=== PATIENT | male | born 1950 | race African-American/Black ===

== ENCOUNTER 2016-10-03 11:29 | Emergency (ER) | payer SELFPAY ==
[2016-10-03 11:34] VITALS: BMI 23.1
[2016-10-03] MEDS ORDERED: FOLIC ACID INJECTION - 1 MG, THIAMINE HCL 100 MG, MULTIVIT INJECTION ADULT 10 ML in SOD... IVPB ONE (12:40)
--- NOTE | 2016-10-03 12:49 | PDOC ---
History of Present Illness - General History Source: Patient, Spouse - History of Present Illness Timing/Duration: other Associated Symptoms: reports: malaise, shortness of breath, weakness. denies: chest pain, cough, diaphoresis, fever/chills, headaches <Haroon Daniel Last Filed: 10/03/16 15:03> <Tamela Metz - Last Filed: 10/08/16 17:29> - General Chief Complaint: Pain Stated Complaint: ABD PAIN/FATIGUE Time Seen by Provider: 10/03/16 12:05 Past History - Past Medical History Anemia: No Asthma: No Cancer: No Cardiac Disorders: No CVA: No COPD: No CHF: No Dementia: No Diabetes: No GI Disorders: No Disorders: No HTN: No Hypercholesterolemia: Yes Liver Disease: No Suicide Attempt (Hx): No Seizures: Yes Thyroid Disease: No - Surgical History Abdominal Surgery: No Appendectomy: No Cardiac Surgery: No Cholecystectomy: No Lung Surgery: Yes (TUBE IN LUNG TO DRAIN FLD,) Orthopedic Surgery: No - Psycho/Social/Smoking Cessation Hx Anxiety: No Suicidal Ideation: No Smoking Status: Yes Smoking History: Current every day smoker Have you smoked in the past 12 months: Yes Number of Cigarettes Smoked Daily: 10 Information on smoking cessation initiated: Yes 'Breaking Loose' booklet given: 10/03/16 Hx Alcohol Use: Yes (SOCIAL) Drug/Substance Use Hx: No Substance Use Type: None Hx Substance Use Treatment: Yes <Savannah Daniel Last Filed: 10/03/16 15:03> <Tamela Metz - Last Filed: 10/08/16 17:29> - Past Medical History Allergies/Adverse Reactions: Allergies Allergy/AdvReac Type Severity Reaction Status Date / Time No Known Allergies Allergy Verified 10/03/16 11:33 Home Medications: Ambulatory Orders NK [No Known Home Medication] 10/03/16 Review of Systems - Review of Systems Constitutional: Yes: Weakness, Unintentional Wgt. Loss. No: Chills, Fever Respiratory: Yes: Shortness of Breath. No: Cough, Hemoptysis Cardiac (ROS): No: Chest Pain ABD/GI: No: Constipated, Diarrhea, Nausea, Vomiting : No: Dysuria, Hematuria Neurological: No: Headache, Dizziness <Jose E Daniel - Last Filed: 10/03/16 15:03> *Physical Exam - Vital Signs Last Vital Signs Temp Pulse Resp BP Pulse Ox 98.0 F 95 H 20 132/78 96 10/03/16 11:31 10/03/16 11:31 10/03/16 11:31 10/03/16 11:31 10/03/16 11:31 - Physical Exam General Appearance: Yes: Appropriately Dressed. No: Apparent Distress HEENT: positive: Normal Voice Neck: positive: Supple Respiratory/Chest: positive: Lungs Clear, Normal Breath Sounds. negative: Respiratory Distress Cardiovascular: positive: Regular Rate, S1, S2 Gastrointestinal/Abdominal: positive: Normal Bowel Sounds, Soft. negative: Tender Musculoskeletal: negative: CVA Tenderness Extremity: positive: Normal Inspection Integumentary: positive: Dry, Warm Neurologic: positive: Fully Oriented, Alert, Normal Mood/Affect <Jose E Daniel Last Filed: 10/03/16 15:03> - Vital Signs Last Vital Signs Temp Pulse Resp BP Pulse Ox 98.1 F 80 22 160/97 96 10/03/16 13:33 10/03/16 13:33 10/03/16 13:33 10/03/16 13:33 10/03/16 13:33 <Tamela Metz - Last Filed: 10/08/16 17:29> Heart Score/ECG Review - ECG Intrepretation Comment:: 10/03/16 13:39 NSR w/ no ST/T wave changes <Jose E Daniel Last Filed: 10/03/16 15:03> ED Treatment Course - LABORATORY CBC & Chemistry Diagram: 10/03/16 12:50 10/03/16 12:50 - RADIOLOGY Radiology Studies Ordered: Category Date Time Status CHEST X-RAY PORTABLE* [RAD] Stat Radiology 10/03/16 12:06 Completed CHEST X-RAY PORTABLE* [RAD] Stat Radiology 10/03/16 12:40 Ordered <Jose E Daniel Last Filed: 10/03/16 15:03> - LABORATORY CBC & Chemistry Diagram: 10/03/16 12:50 10/03/16 12:50 - ADDITIONAL ORDERS Additional order review: 10/03/16 10/03/16 14:49 12:50 RBC 5.07 D MCV 86.2 MCHC 34.2 RDW 14.3 MPV 8.1 Neutrophils % 84.8 H Lymphocytes % 10.1 D Monocytes % 3.8 Eosinophils % 0.1 D Basophils % 1.2 D POC Glucometer [id number] - Medications Given in the ED: ED Medications Discontinued Medications Generic Name Dose Route Start Last Admin Trade Name Mervin PRN Reason Stop Dose Admin Dextrose 50 ml 10/03/16 13:37 10/03/16 14:22 D50w (Vial) - IVPUSH 10/03/16 13:38 Not Given NOW ONE Folic Acid 1 mg/ Thiamine HCl 1,000 mls @ 125 mls/hr 10/03/16 12:40 10/03/16 13 :12 100 mg/ Multivitamins/Minerals IVPB 10/03/16 20:39 125 mls/hr 10 ml/ Sodium Chloride ONCE ONE Administration <Tamela Metz - Last Filed: 10/08/16 17:29> Medical Decision Making - Medical Decision Making 10/03/16 12:41 65-year-old male, > [id number] history, s/p lung resection, but states it was not secondary to malignancy as per patient, ETOH abuse, hernia repair, SBO , presents with profound weakness that started 2 days ago, but worsened today. Patient states this a.m. when he awoke he felt that he had no energy. Also complaining of possible short of breath of breath this am. No chest pain, diaphoresis, nausea, vomiting, cough, fever or chills. States he did have some vague abd pain earlier today that has since resolved. No change in bowel movements or dysuria. currently at bedside and states patient has lost "a lot of weight", but unable to specify how many pounds and over what time period. also reports that patient drinks daily and often does not eat See exam Weakness R/o malignancy vs metabolic vs infectious, less likely neuro Stable and alert in ED w/ unremarkable exam -IVF -banana bag given ETOH abuse -ekg -cxr -labs -anticipate admission 10/03/16 13:25 10/03/16 13:39 Hypoglycemia to 56, labs otherwise unremarkable. Amp D50 in progress and will feed and reassess 10/03/16 13:42 10/03/16 13:57 Pt currently eating and well bigg, will hold off on D50 and reassess 10/03/16 13:58 10/03/16 15:05 Repeat fingerstick in the 180s as per ED nurse. On reassessment, patient reports feeling a lot better and states he does not feel weak at this time. I had a lengthy conversation with patient, explaining to him the importance of a nutritious diet to provide energy, etc. Also discussed excessive ETOH intake and recommend cessation and ? detox/rehab. Patient stable for discharge and instructed to follow up with PMD this week. Reasons to return discussed with patient 10/03/16 15:11 <Jose E Daniel - Last Filed: 10/03/16 15:03> - Medical Decision Making 10/08/16 17:28 Pt seen and evaluated with MANAGER IT SECURITY/PA. Agree with above. <Tamela Metz - Last Filed: 10/08/16 17:29> *DC/Admit/Observation/Transfer <Jose E Daniel - Last Filed: 10/03/16 15:03> <Tamela Metz - Last Filed: 10/08/16 17:29> Diagnosis at time of Disposition: Weakness, Hypoglycemia - Discharge Dispostion Disposition: HOME Condition at time of disposition: Improved - Patient Instructions Printed Discharge Instructions: Health and Nutrition Information: Fact From Fiction, Alcohol Use Disorder, Hypoglycemia Additional Instructions: It is important to maintain a nutritious diet in order to provide energy. Strongly consider alcohol cessation as this can lead to significant health issues. Return to ER for worsening of symptoms
[2016-10-03 13:03] LABS: BASOPHIL 1.2 % (0-2.0); EOSINOPHIL 0.1 % (0-4.5); MCH 29.4 pg (25.7-33.7); MCHC 34.2 g/dl (32.0-35.9); MEAN CELL VOLUME 86.2 fl (80-96); MEAN PLT VOLUME 8.1 fl (7.5-11.1); NEUTROPHILS 84.8 % (42.8-82.8); PLATELET COUNT 248 K/MM3 (134-434); RDW 14.3 % (11.9-15.9)
[2016-10-03 13:31] LABS: ALBUMIN 4.3 g/dl (3.4-5.0); ANION GAP 15 (8-16); CALCIUM 9.3 mg/dL (8.5-10.1); CO2 22 mmol/L (21-32); CREATININE 0.9 mg/dL (0.7-1.3); GLUCOSE,RANDOM 56 mg/dL (74-106); SGOT/AST 63 U/L (15-37); SGPT/ALT 45 U/L (12-78); TOT PROT 8.1 g/dl (6.4-8.2)
[2016-10-03 13:34] VITALS: BP 160/97; PULSE 80; TEMP 98.1
[2016-10-03 13:35] LABS: ALK PHOS 102 U/L (45-117); TROPONIN I < 0.02 ng/ml (0.00-0.05)
[2016-10-03] MEDS ORDERED: DEXTROSE 50%-WATER - 25 GM/50 ML VIAL IVPUSH ONE (13:37)
[2016-10-03 13:50] LABS: URINE APPEARANCE CLEAR; URINE BILIRUBIN NEGATIVE (NEGATIVE); URINE BLOOD 2+ (NEGATIVE); URINE COLOR YELLOW; URINE GLUCOSE (UA) NEGATIVE (NEGATIVE); URINE KETONE TRACE (NEGATIVE); URINE LEUK ESTERASE NEGATIVE (NEGATIVE); URINE NITRITE NEGATIVE (NEGATIVE); URINE PROTEIN 2+ (NEGATIVE); URINE UROBILINOGEN NEGATIVE E.U./dl (0.2-1.0)
[2016-10-03 13:52] LABS: GRANULAR CASTS 4 /lpf; URINE HYALINE CAST 1 /lpf; URINE WBC 1 /hpf (3-5)
--- NOTE | 2016-10-04 14:21 | EKG ---
Test Reason : Blood Pressure : / mmHG Vent. Rate : 080 BPM Atrial Rate : 080 BPM P-R Int : 156 ms QRS Dur : 082 ms QT Int : 404 ms P-R-T Axes : 071 056 071 degrees QTc Int : 465 ms NORMAL SINUS RHYTHM POSSIBLE LEFT ATRIAL ENLARGEMENT SEPTAL INFARCT , AGE UNDETERMINED ABNORMAL ECG WHEN COMPARED WITH ECG OF 19-NOV-2011 10:58, NO SIGNIFICANT CHANGE WAS FOUND Confirmed by WILL HALE MD ([id number]) on 10/04/2016 2:21:03 PM Referred By: Confirmed By:WILL HALE MD
== END 2016-10-03 15:33 | disposition home or self-care (01) ==
LOC: JER 11:29
PROC: 3E033GC Introduction of Other Therapeutic Substance into Peripheral Vein, Percutaneous Approach (ICD-10-PCS; principal; 2016-10-03)
DX: E16.2 Hypoglycemia, unspecified (principal); F10.10 Alcohol abuse, uncomplicated; E78.00 Pure hypercholesterolemia, unspecified; G40.909 Epilepsy, unspecified, not intractable, without status epilepticus
CPT/HCPCS: 36415; 71010-TC; 80053; 81003; 81015; 82550; 82553; 83690; 84484; 85025; 93005; 93010; 99282-25

== ENCOUNTER 2018-01-21 12:14 | Inpatient (IN) | payer MEDICARE, OTHER ==
[2018-01-21] MEDS ORDERED: FAMOTIDINE 20 MG/50 ML IVPB 20 MG/50 ML MG IVPB ONE ×2 (12:46→13:12)
[2018-01-21] MEDS ORDERED: ACETAMINOPHEN 1000 MG/100 ML VIAL (NON FORMULARY) IVPB ONE (12:46)
--- NOTE | 2018-01-21 13:02 | PDOC ---
History of Present Illness <SolitarioLaney dwyer - Last Filed: 01/21/18 15:10> - General History Source: Patient Exam Limitations: No Limitations <Geronimo Nash - Last Filed: 01/21/18 16:51> <Rosalinda Parham Dioneteresita - Last Filed: 01/21/18 17:43> - General Chief Complaint: Chest Pain Stated Complaint: CHEST PAIN Time Seen by Provider: 01/21/18 12:29 - History of Present Illness Initial Comments: 67 yo M w a hx of HCL is here with 2 weeks of sharp chest pain with radiation down his L arm. He reports the chest pain is also associated with diaphoresis. It has also been associated with occasional nausea but no emesis. The chest pain is also brought on by exertion, and relieved by rest. He also reports some leg tingling possibly consistent with PVD. - Also reports that the pain is worse after he eats. He denies recent fevers, chills or infections. Denies SOB or difficulty breathing. Denies headache, visual changes, nausea, vomiting, urinary or bowel complaints. PSH: Lung fluid drainage, SBO. PCP: Dr. Yazmin Ngo hx: smokes 1.5 PPD - 40 pack year hx, denies alcohol or illicit drug usage. Allergies: NKA, NKDA (Geronimo Nash) Past History <Laney Chi - Last Filed: 01/21/18 15:10> - Past Medical History Anemia: No Asthma: No Cancer: No Cardiac Disorders: No CVA: No COPD: No CHF: No Dementia: No Diabetes: No GI Disorders: No Disorders: No HTN: No Hypercholesterolemia: Yes Liver Disease: No Seizures: Yes Thyroid Disease: No - Surgical History Abdominal Surgery: No Appendectomy: No Cardiac Surgery: No Cholecystectomy: No Lung Surgery: Yes (TUBE IN LUNG TO DRAIN FLD,) Orthopedic Surgery: No - Immunization History Immunization Up to Date: Yes - Suicide/Smoking/Psychosocial Hx Smoking Status: Yes Have you smoked in the past 12 months: Yes Number of Cigarettes Smoked Daily: 10 Information on smoking cessation initiated: No 'Breaking Loose' booklet given: 10/03/16 Hx Alcohol Use: No Drug/Substance Use Hx: No Substance Use Type: None Hx Substance Use Treatment: Yes <Geronimo Nash - Last Filed: 01/21/18 16:51> <Rosalinda Parham - Last Filed: 01/21/18 17:43> - Past Medical History Allergies/Adverse Reactions: Allergies Allergy/AdvReac Type Severity Reaction Status Date / Time No Known Allergies Allergy Verified 01/21/18 12:20 Home Medications: Ambulatory Orders NK [No Known Home Medication] 10/03/16 Cardiac Specific PMH - Complaint Specific PMHX Angina: No Cardiac Arrhythmia: No GERD: No Pacemaker: No Peripheral Vascular Disease: No <Geronimo Nash - Last Filed: 01/21/18 16:51> Review of Systems - Review of Systems Constitutional: Yes: Diaphoresis. No: Chills, Fever HEENTM: Yes: Cataracts. No: Blurred Vision, Nose Congestion Respiratory: Yes: SOB with Exertion. No: Cough, Shortness of Breath, Wheezing Cardiac (ROS): Yes: Chest Pain. No: Edema, Irregular Heart Rate, Lightheadedness, Palpitations, Syncope, Chest Tightness ABD/GI: Yes: Nausea, Indigestion. No: Abdominal Distended, Constipated, Diarrhea, Poor Fluid Intake, Vomiting : No: Burning, Dysuria, Frequency, Urgency Musculoskeletal: No: Back Pain, Joint Pain, Neck Pain Integumentary: Yes: Sweating. No: Bruising, Erythema, Pallor, Rash Neurological: Yes: Paresthesia, Tingling. No: Headache, Numbness, Tremors, Weakness, Ataxia, Dizziness Psychiatric: No: Anxiety, Depression Endocrine: No: Excessive Sweating, Intolerance to Cold, Intolerance to Heat Hematologic/Lymphatic: No: Anemia, Blood Clots, Easy Bleeding <Geronimo Nash - Last Filed: 01/21/18 16:51> *Physical Exam - Physical Exam General Appearance: Yes: Nourished, Appropriately Dressed, Disheveled HEENT: positive: EOMI, AKOSUA, Normal ENT Inspection, Normal Voice. negative: Pale Conjunctivae, Scleral Icterus (R), Scleral Icterus (L), Pharyngeal Erythema , Nasal Congestion Neck: positive: Trachea midline, Supple. negative: Carotid bruit, Lymphadenopathy (R), Lymphadenopathy (L) Respiratory/Chest: positive: Lungs Clear, Normal Breath Sounds. negative: Respiratory Distress Cardiovascular: positive: Regular Rhythm, Regular Rate, S1, S2. negative: Edema , JVD, Murmur Vascular Pulses: Dorsalis-Pedis (R): 2+, Doralis-Pedis (L): 2+ Gastrointestinal/Abdominal: positive: Normal Bowel Sounds, Soft. negative: Guarding, Rebound Lymphatic: negative: Adenopathy Musculoskeletal: positive: Normal Inspection. negative: CVA Tenderness, Decreased Range of Motion, Vertebral Tenderness Integumentary: positive: Normal Color, Dry, Warm. negative: Cyanotic, Erythema , Jaundice, Cold, Rash Neurologic: positive: correction officer city or county jail II-XII NML intact, Fully Oriented, Alert, Normal Mood/ Affect, Normal Response <Geronimo Nash - Last Filed: 01/21/18 16:51> - Vital Signs Last Vital Signs Temp Pulse Resp BP Pulse Ox 98 F 67 15 151/77 100 01/21/18 16:12 01/21/18 16:12 01/21/18 16:12 01/21/18 16:12 01/21/18 16:12 Heart Score/ECG Review - History History: Moderately suspicious - Electrocardiogram EKG: Non specific repolarization disturbance - Age Age: >/= 65 - Risk Factors Risk Factors Heart Score: Yes Hx Hypercholesterolemia Based on the list above the patient has:: >/=3 risk factors or Hx atherosclerotic disease - ECG Intrepretation Rhythm: Regular Rhythm - [place]: Normal - P and [place] Atrial Enlargement: Left Prominent R with upright T in V1 (true posterior DE): No Delta Wave(s) Present: No WPW: No - QRS Increased Voltage: Precordial Leads Q Wave Present: No - ST and T Early Repolarization: Yes Non Specific ST-T Wave changes: Yes Flattened T Waves: Yes Prolonged Q-T Interval: No - ECG Impressions Normal ECG: No Non-specific ST Elevation: No Acute Myocardial Infarction: Anterior Bradycardia: No <Geronimo Nash - Last Filed: 01/21/18 16:51> Procedures - Bedside Ultrasound Bedside Ultrasound: Cardiac (minor posterior/inferior wall motion abnormality.) <Geronimo Nash - Last Filed: 01/21/18 16:51> ED Treatment Course - LABORATORY CBC & Chemistry Diagram: 01/21/18 13:39 01/21/18 13:39 <Laney Chi - Last Filed: 01/21/18 15:10> - LABORATORY CBC & Chemistry Diagram: 01/21/18 13:39 01/21/18 13:39 <SaadGeronimo - Last Filed: 01/21/18 16:51> - LABORATORY CBC & Chemistry Diagram: 01/21/18 13:39 01/21/18 13:39 <Rosalinda Parham - Last Filed: 01/21/18 17:43> - ADDITIONAL ORDERS Additional order review: Laboratory Results 01/21/18 01/21/18 01/21/18 15:14 15:14 15:14 PT with INR 12.00 INR 1.02 PTT (Actin FS) 163.0 H Sodium Potassium Chloride Carbon Dioxide Anion Gap BUN Creatinine Creat Clearance w eGFR Random Glucose Calcium Total Bilirubin AST ALT Alkaline Phosphatase Creatine Kinase Creatine Kinase Index CK-MB (CK-2) Troponin I Total Protein Albumin Lipase Blood Type A POSITIVE Antibody Screen Negative 01/21/18 13:39 PT with INR INR PTT (Actin FS) Sodium 138 Potassium 4.1 Chloride 106 Carbon Dioxide 25 Anion Gap 7 L BUN 14 Creatinine 0.8 Creat Clearance w eGFR > 60 Random Glucose 100 Calcium 8.8 Total Bilirubin 0.2 AST 24 ALT 27 Alkaline Phosphatase 91 Creatine Kinase 169 Creatine Kinase Index 2.8 CK-MB (CK-2) 4.9 H Troponin I 0.18 H Total Protein 7.7 Albumin 3.7 Lipase 152 Blood Type Antibody Screen 01/21/18 13:39 RBC 5.08 MCV 83.9 MCHC 34.3 RDW 15.3 MPV 8.6 Neutrophils % 63.8 D Lymphocytes % 25.0 D Monocytes % 6.1 Eosinophils % 3.0 D Basophils % 2.1 H - Medications Given in the ED: ED Medications Discontinued Medications Generic Name Dose Route Start Last Admin Trade Name Zhouq PRN Reason Stop Dose Admin Acetaminophen 1,000 mg 01/21/18 12:46 01/21/18 13:40 Ofirmev Injection - IVPB 01/21/18 12:47 1,000 mg ONCE ONE Administration Aspirin 325 mg 01/21/18 14:18 01/21/18 14:50 Asa - PO 01/21/18 14:19 325 mg ONCE ONE Administration Clopidogrel Bisulfate 300 mg 01/21/18 14:53 01/21/18 16:07 Plavix - PO 01/21/18 14:54 300 mg ONCE ONE Administration Famotidine/Sodium Chloride 20 mg in 50 mls @ 100 mls/hr 01/21/18 12:46 13:35 Pepcid 20 Mg Premixed Ivpb - IVPB 01/21/18 13:15 100 mls/hr ONCE ONE Administration Metoprolol Tartrate 25 mg 01/21/18 15:57 01/21/18 16:13 Lopressor - PO 01/21/18 15:58 25 mg ONCE ONE Administration Medical Decision Making <Laney Chi - Last Filed: 01/21/18 15:10> <Geronimo Nash - Last Filed: 01/21/18 16:51> <Rosalinda Parham - Last Filed: 01/21/18 17:43> - Medical Decision Making 01/21/18 14:[address] Younger, electronic security technician informatics coordinator, case was discussed. 14:[address] Toñito Arce's, patient's PCP, case was discussed. (Laney Chi) 67 yo M w a hx of HCL is here with 2 weeks of sharp chest pain with radiation down his L arm. He also has suspicious new EKG changes. He has poor follow up, a hx of HCL, strong smoking hx, age 67. HEART score is minimum 5 for this patient. DD includes but not limited to: ACS, unstable angina, PE, dissection, GERD, Gallbladder disease, Pneumothorax, MSK chest pain. Plan: Cbc, Cmp, Trop, EKG, CXR, acetaminophen, pepcid, bedside echocardiogram, re-assess. Patient has new suspicious EKG changes compared to 2017. Bedside echo performed at bedside shows mild posterior/inferior wall motion abnormality. First Trop came back elevated at 0.18. Patient is having an NSTEMI. We are calling [facility] for potential emergent Cath. Consulted case with Dr. Younger from [facility] - he will come to ER to assess patient. Starting patient on Heparin and plavix. (Geronimo Nash) *DC/Admit/Observation/Transfer <Laney Chi - Last Filed: 01/21/18 15:10> <Geronimo Nash - Last Filed: 01/21/18 16:51> - Discharge Dispostion Decision to Admit order: Yes <Rosalinda Parham - Last Filed: 01/21/18 17:43> Diagnosis at time of Disposition: NSTEMI (non-ST elevated myocardial infarction) - Discharge Dispostion Condition at time of disposition: Guarded Decision to Admit order Date/Time: Decision to Admit Order Category Date Time Status Decision to Admit to Hospital Routine Admission 01/21/18 14:48 Active - Attestations Scribe Attestion: 01/21/18 14:27 Documentation prepared by Laney Chi, acting as medical records assistant for Rosalinda Parham MD. (Laney Chi)
[2018-01-21] MEDS ORDERED: ACETAMINOPHEN INJECTION 100 ML IVPB ONE (13:11)
[2018-01-21 13:47] LABS: BASO % 2.1 % (0-2.0); HEMATOCRIT 42.6 % (35.4-49); HEMOGLOBIN 14.6 GM/dL (11.7-16.9); MCH 28.8 pg (25.7-33.7); MCHC 34.3 g/dl (32.0-35.9); MEAN CELL VOLUME 83.9 fl (80-96); MEAN PLT VOLUME 8.6 fl (7.5-11.1); MONO % 6.1 % (3.8-10.2); NEUT % 63.8 % (42.8-82.8); PLATELET COUNT 203 K/MM3 (134-434); RBC 5.08 M/mm3 (4.00-5.60); RDW 15.3 % (11.9-15.9); WHITE BLOOD COUNT 7.1 K/mm3 (4.0-10.0)
[2018-01-21 14:12] LABS: ALBUMIN 3.7 g/dl (3.4-5.0); ALK PHOS 91 U/L (45-117); ANION GAP 7 MMOL/L (8-16); BILIRUBIN,TOTAL 0.2 mg/dL (0.2-1); BLOOD UREA NITROGEN 14 mg/dL (7-18); CALCIUM 8.8 mg/dL (8.5-10.1); CHLORIDE 106 mmol/L (98-107); CO2 25 mmol/L (21-32); CREATININE 0.8 mg/dL (0.55-1.3); GLUCOSE,RANDOM 100 mg/dL (74-106); LIPASE 152 U/L (73-393); POTASSIUM 4.1 mmol/L (3.5-5.1); SGOT/AST 24 U/L (15-37); SGPT/ALT 27 U/L (13-61); SODIUM 138 mmol/L (136-145); TOT PROT 7.7 g/dl (6.4-8.2)
[2018-01-21] MEDS ORDERED: ASPIRIN 325 MG TABLET PO ONE (14:18)
[2018-01-21 14:37] LABS: ANISOCYTOSIS 0; MACROCYTOSIS 0; PLATELET ESTIMATE NORMAL
[2018-01-21] MEDS ORDERED: HEPARIN NA (PORCINE) 5,000 UNITS/ML 1ML VIAL IVPUSH PRN ×2 (14:45)
[2018-01-21] MEDS ORDERED: ASPIRIN 325 MG TABLET ONE (14:46)
--- NOTE | 2018-01-21 14:49 | PDOC ---
Attending Attestation - Resident Resident Name: Geronimo Nash - ED Attending Attestation I have performed the following: I have examined & evaluated the patient, The case was reviewed & discussed with the resident, I agree w/resident's findings & plan - HPI HPI: 01/21/18 14:49 Gaston 67 YOM with h/o HLD, current smoker presenting with intermittently exertional CP radiating to left arm x 2 weeks, a/w food and diaphoresis. + smoker. He states CP worsening and increasing in frequency and intensity, lasting up to 15-20 minutes. He denies any recent fevers, chills, headache or dizziness. He denies any recent nausea, vomit, diarrhea or constipation. He denies any recent chest pain or shortness of breath. He denies any recent dysuria, frequency, urgency or hematuria. Allergies: NKA Past surgical history: Lung resection. s/p SBO Social History: Smoker (1.5 pack per day). Denies EtOH use and recreational drug use. PMD: Dr. Toñito Arce (has not seen for long time due to insurance issues) 01/21/18 15:30 - Physicial Exam PE: 01/21/18 15:32 NAD, well appearing, MMM, nl conjunctiva, anicteric; neck supple. lungs clear, RRR, abdomen soft nontender. EMERY x4, no focal neuro deficits. No peripheral edema. normal color for ethnicity, WWP. - Critical Care Time Total Critical Care Time: 45 (NSTEMI) Critical Care Statement: The care of this patient involved high complexity decision making to prevent further life threatening deterioration of the patient 's condition and/or to evaluate & treat vital organ system(s) failure or risk of failure. - Medical Decision Making 01/21/18 14:51 Gaston 67 YOM with h/o HLD, smoker presenting with intermittently exertional CP radiating to left arm x 2 weeks, a/w food and diaphoresis. +smoker. states CP worsening and increasing in frequency and intensity, lasting up to 15- 20 minutes. vitals wnl, chest pain free now EKG normal sinus rhythm, no interval abnormalities, narrow QRS, ST segments and morphology normal. NEW TWI in III, AVF and V6, flattening in II, new changes from prior EKG, contiguous lead changes present. Bedside POCUS Echo with no pericardial effusion, RV<LV, aortic root <4cm, +FWMA in inferior hypokinesis, EF mildly depressed ~50%, borderline in appearance due to FWMA. Heart score ~7 based on typical chest pain sx, worsening and concerning for ACS with EKG and POCUS echo changes. ASA 324mg PO x1 given, Trop elevated 0.18. will c/w trending. Plavix 600mg x1 loading. initiated metoprolol BB, metoprolol PO Heparin 5000 units x1, start gtt for NSTEMI CXR clear. no edema or cardiomegaly Cards cs - spoke with Dr Younger with [facility], agree with plan, tele admit and urgent elective cath, trend EKG/trops and monitor closely Admit to Dr. Arce. Tele monitor, serial trops/EKG and monitor, likely elective catheterization with concerning CP symptoms. pt and family made aware of impression and plan, questions answered, agreeable. 01/21/18 17:41 01/21/18 17:42 Heart Score/ECG Review - History History: Highly suspicious - Electrocardiogram EKG: Non specific repolarization disturbance - Age Age: >/= 65 - Risk Factors Risk Factors Heart Score: Yes Hx Hypercholesterolemia, Yes Smoking History Based on the list above the patient has:: 1-2 risk factors - Troponin Troponin: 1-3x normal limit - Score Heart Score - Total: 7 - ECG Impressions Normal ECG: No Ischemic Changes: Yes Comment:: 01/21/18 15:22 EKG normal sinus rhythm, no interval abnormalities, narrow QRS, ST segments and morphology normal. NEW TWI in III, AVF and V6, flattening in II, new changes from prior EKG, contiguous lead changes present. 01/21/18 15:34 Procedures - Bedside Ultrasound Bedside Ultrasound: Cardiac Remarks: 01/21/18 15:23 POCUS ECHO performed, indication includes chest pain. views obtained (PSLA, PSS , A4, SX). Findings include mildly depressed EF ~50%, no pericardial effusion, ( +)FWMA involving inferior wall hypokinesis. Normal aortic root <4cm. RV<LV. Impression:
[2018-01-21] MEDS ORDERED: CLOPIDOGREL BISULFATE 300 MG TABLET PO ONE (14:53)
[2018-01-21] MEDS ORDERED: HEPARIN INFUSION - 25,000 UNITS/500 ML INFUS.BAG IVPB ONE (15:00)
[2018-01-21] MEDS ORDERED: HEPARIN NA (PORCINE) 5,000 UNITS/ML 1ML VIAL ONE (15:00)
[2018-01-21] MEDS: HEPARIN - 25,000 UNIT in SODIUM CHLORIDE 495 ML IV SCH (15:21)
--- NOTE | 2018-01-21 15:45 | CON.CARD ---
Consult Consult Specialty:: Cardiology Referred by:: Dr. Parham - [facility] Reason for Consultation:: Chest pain with evidence of NSTEMI - History of Present Illness Chief Complaint: Chest pain, intermittent, predominantly exertional for 2 weeks. History of Present Illness: 67 year-old man, heavy smoker (1-04/19 PPD X 40 years) with a history of hyperlipidemia presents to ED 01/21/2018 with intermittent, predominantly chest pain for 2 weeks. The patient has been experiencing exertional chest pain with radiation to his left arm with associated diaphoresis for 2 weeks. His chest pain can be resolved after 10-15 minute rest. Minimal exertion can trigger his symptoms. He also reports some leg tingling and nausea. He has no chest pain at rest, SOB, palpitation, syncope or near syncope. No edema, orthopnea or PND. ECG shows inferolateral T inversion. First troponin is mildly elevated. The patient has been stable in ED without recurrent chest pain. - History Source History Provided By: Patient Limitations to Obtaining History: No Limitations - Alcohol/Substance Use Hx Alcohol Use: No - Smoking History Smoking history: Never smoked Have you smoked in the past 12 months: Yes Aproximately how many cigarettes per day: 10 Home Medications - Allergies Allergies/Adverse Reactions: Allergies Allergy/AdvReac Type Severity Reaction Status Date / Time No Known Allergies Allergy Verified 01/21/18 12:20 - Home Medications Home Medications: Ambulatory Orders NK [No Known Home Medication] 10/03/16 Review of Systems - Review of Systems Constitutional: reports: No Symptoms Eyes: reports: No Symptoms HENT: reports: No Symptoms Neck: reports: No Symptoms Cardiovascular: reports: Chest Pain Respiratory: reports: Exercise Intolerance Gastrointestinal: reports: Nausea Genitourinary: reports: No Symptoms Breasts: reports: No Symptoms Reported Musculoskeletal: reports: No Symptoms Integumentary: reports: No Symptoms Neurological: reports: No Symptoms Endocrine: reports: No Symptoms Hematology/Lymphatic: reports: No Symptoms Psychiatric: reports: No Symptoms Vital Signs: Vital Signs Temperature 98.7 F 01/21/18 12:18 Pulse Rate 82 01/21/18 12:18 Respiratory Rate 20 01/21/18 12:18 Blood Pressure 136/77 01/21/18 12:18 O2 Sat by Pulse Oximetry (%) 100 01/21/18 12:34 General: Well developed. Well nourished. No acute distress. Head: Normocephalic. Atraumatic, Eyes: PERRLA, EOMI. Sclerae anicteric. Conjunctivae clear. Neck: Supple. No JVD. No bruits. Heart: Normal S1, S2: Regularly regular rhythm and rate. No murmur. No gallop or rub. Lungs: Symmetrical air entry. Clear to auscultation. No crackle. No wheezing or rhonchi. Abdomen: Soft. Bowel sound positive. Non tender. No masses. Extremities: No edema. No clubbing or cyanosis. Neuro: Intact, no focal findings. AAO X3. - Other Data Labs, Other Data: CBC, BMP 01/21/18 13:39 01/21/18 13:39 Troponin, BNP 01/21/18 13:39 Troponin I 0.18 H Troponin, BNP 01/21/18 13:39 Troponin I 0.18 H Assessment/Plan 67 year-old man, heavy smoker (1-/2 PPD X 40 years) with a history of hyperlipidemia presents to ED 01/21/2018 with intermittent, predominantly chest pain for 2 weeks with evidence of NSTEMI. 1) Acute coronary syndrome with evidence of NSTEMI. -Start IV heparin with bolus. -Load Plavix 300 mg x1, then 75 mg daily. -Start aspirin 81 mg daily. -Start metoprolol tartrate 25 mg BID. -Cardiac cath for possible PCI at [facility] on 01/23/2018. -Start IV NTG if recurrent chest pain. 2) Hyperlipidemia. Start atorvastatin 80 mg daily. We will follow the patient with you.
[2018-01-21] MEDS ORDERED: METOPROLOL TARTRATE 25 MG TABLET (FP) PO ONE (15:57)
[2018-01-21] MEDS ORDERED: CLOPIDOGREL BISULFATE 300 MG TABLET ONE (16:03)
[2018-01-21] MEDS ORDERED: METOPROLOL TARTRATE 25 MG TABLET (FP) ONE (16:09)
[2018-01-21 16:16] LABS: INR 1.02 (0.83-1.09)
--- NOTE | 2018-01-21 16:41 | EKG ---
Test Reason : Blood Pressure : / mmHG Vent. Rate : 073 BPM Atrial Rate : 073 BPM P-R Int : 140 ms QRS Dur : 084 ms QT Int : 386 ms P-R-T Axes : 067 037 000 degrees QTc Int : 425 ms NORMAL SINUS RHYTHM POSSIBLE LEFT ATRIAL ENLARGEMENT POOR R WAVE PROGRESSION ABNORMAL ECG WHEN COMPARED WITH ECG OF 03-OCT-2016 12:48, T WAVE INVERSION NOW EVIDENT IN INFERIOR LEADS CLINICAL CORRELATION IS RECOMMENDED Confirmed by CLIFTON DEL RIO, ESTRADA ([id number]) on 01/21/2018 4:41:17 PM Referred By: Confirmed By:ESTRADA LAZO MD
[2018-01-21 19:03] VITALS: BMI 24.0
[2018-01-21] MEDS ORDERED: NITROGLYCERIN SUBLINGUAL 1/150 0.4 MG TAB SL PRN (21:42)
[2018-01-21] MEDS ORDERED: SODIUM CHLORIDE 0.45% 1,000 ML IV SCH (21:45)
[2018-01-21] MEDS ORDERED: MELATONIN 5 MG TABLETS PO PRN (22:55)
--- NOTE | 2018-01-21 23:32 | HP ---
Admitting History and Physical - Admission Chief Complaint: 67 y/o black male c/o cp sob x 1wk. ? rtleg tingling sensation History Source: Patient Limitations to Obtaining History: No Limitations - Past Medical History Pulmonary: Yes: Other (lt chest tube ? pneumothorax air ???) Gastrointestinal: Yes: Other (volvulus bowel sx) Renal/: Yes: Other (lt groin hernia) - Past Surgical History Past Surgical History: Yes: Hernia Repair (lt chest tubr for ? pneumothorax air ?and bowel sx volvulus) - Smoking History Smoking history: Never smoked Have you smoked in the past 12 months: Yes Aproximately how many cigarettes per day: 10 - Alcohol/Substance Use Hx Alcohol Use: No - Social History History of Recent Travel: No Home Medications - Allergies Allergies/Adverse Reactions: Allergies Allergy/AdvReac Type Severity Reaction Status Date / Time No Known Allergies Allergy Verified 01/21/18 12:20 - Home Medications Home Medications: Ambulatory Orders NK [No Known Home Medication] 10/03/16 Family Disease History - Family Disease History Family History: Unremarkable Review of Systems - Review of Systems Cardiovascular: reports: Chest Pain Physical Examination Vital Signs: Vital Signs Temperature 98.2 F 01/21/18 20:56 Pulse Rate 58 L 01/21/18 20:56 Respiratory Rate 18 01/21/18 20:56 Blood Pressure 138/78 01/21/18 20:56 O2 Sat by Pulse Oximetry (%) 99 01/21/18 20:54 Constitutional: Yes: Well Nourished Eyes: Yes: WNL HENT: Yes: WNL Neck: Yes: WNL Cardiovascular: Yes: WNL, Bradycardia Respiratory: Yes: WNL Gastrointestinal: Yes: WNL ...Rectal Exam: Yes: Deferred Renal/: Yes: WNL Breast(s): Yes: WNL Musculoskeletal: Yes: WNL Extremities: Yes: WNL Edema: No Edema: LUE: 3+, RUE: 3+, LLE: 3+, RLE: 3+ Peripheral Pulses WNL: Yes Integumentary: Yes: WNL Neurological: Yes: WNL ...Motor Strength: WNL Psychiatric: Yes: WNL Labs: CBC, BMP 01/21/18 13:39 01/21/18 13:39 Assessment/Plan 0 2 trop q 8 ;low na diet pantoprozole po ntg prn cp sl heparin card for cath tuesday [facility]
[2018-01-22 08:13] LABS: ALBUMIN 3.4 g/dl (3.4-5.0); ALK PHOS 74 U/L (45-117); ANION GAP 6 MMOL/L (8-16); BILIRUBIN,TOTAL 0.5 mg/dL (0.2-1); BLOOD UREA NITROGEN 12 mg/dL (7-18); CALCIUM 8.7 mg/dL (8.5-10.1); CHLORIDE 106 mmol/L (98-107); CO2 26 mmol/L (21-32); CREATININE 0.7 mg/dL (0.55-1.3); GLUCOSE,RANDOM 119 mg/dL (74-106); POTASSIUM 4.1 mmol/L (3.5-5.1); SGOT/AST 18 U/L (15-37); SGPT/ALT 22 U/L (13-61); SODIUM 138 mmol/L (136-145); TOT PROT 6.7 g/dl (6.4-8.2)
[2018-01-22] MEDS ORDERED: FLU VACCINE QUAD 60 MCG/0.5 ML (MDV 18-19) IM ONE (09:00)
--- NOTE | 2018-01-22 09:17 | PN ---
Progress Note, Physician History of Present Illness: comfortable bp higher watchful eyes on bp meds may decrease hr ? hctz if needed - Current Medication List Current Medications: Active Medications Aspirin (Asa -) 81 mg PO DAILY [facility] Heparin Sodium (Porcine) (Heparin -) 1,000 unit IVPUSH PRN PRN PRN Reason: Heparin Heparin Sodium (Porcine) (Heparin -) 5,000 unit IVPUSH PRN PRN PRN Reason: Heparin Last Admin: 01/21/18 15:21 Dose: 5,000 unit Heparin Sodium (Porcine) 25, (000 unit/ Sodium Chloride) 500 mls @ 20 mls/hr IV TITR АЛЕКСАНДР; Protocol Last Admin: 01/21/18 15:21 Dose: 1,000 unit/hr, 20 mls/hr Melatonin (Melatonin) 5 mg PO HS PRN PRN Reason: INSOMNIA Last Admin: 01/21/18 23:15 Dose: 5 mg Nitroglycerin (Nitrostat -) 0.4 mg SL PRN PRN PRN Reason: CHEST PAIN Pantoprazole Sodium (Protonix -) 40 mg PO DAILY [facility] - Objective Vital Signs: Vital Signs Temperature 97.5 F L 01/22/18 02:00 Pulse Rate 51 L 01/22/18 07:21 Respiratory Rate 18 01/22/18 07:21 Blood Pressure 146/94 01/22/18 07:21 O2 Sat by Pulse Oximetry (%) 99 01/21/18 20:54 Labs: CBC, BMP 01/21/18 13:39 01/22/18 06:00 INR, PTT INR 1.02 (0.83-1.09) 01/21/18 15:14
[2018-01-22] MEDS: PANTOPRAZOLE 40 MG TABLET (FP) PO SCH (09:55)
[2018-01-22] MEDS: ASPIRIN 81 MG CHEWABLE TABLETS PO SCH (09:56)
[2018-01-22 10:37] LABS: BASO % 1.2 % (0-2.0); HEMATOCRIT 40.8 % (35.4-49); HEMOGLOBIN 13.4 GM/dL (11.7-16.9); LYMPH % 23.2 % (8-40); MCH 27.8 pg (25.7-33.7); MCHC 32.8 g/dl (32.0-35.9); MEAN CELL VOLUME 84.5 fl (80-96); MONO % 7.6 % (3.8-10.2); PLATELET COUNT 185 K/MM3 (134-434); RBC 4.82 M/mm3 (4.00-5.60); RDW 15.2 % (11.9-15.9); WHITE BLOOD COUNT 7.5 K/mm3 (4.0-10.0)
[2018-01-22 12:27] LABS: ALBUMIN 3.4 g/dl (3.4-5.0); ALK PHOS 78 U/L (45-117); ANION GAP 7 MMOL/L (8-16); BILIRUBIN,TOTAL 0.3 mg/dL (0.2-1); BLOOD UREA NITROGEN 12 mg/dL (7-18); CALCIUM 8.9 mg/dL (8.5-10.1); CHLORIDE 106 mmol/L (98-107); CO2 26 mmol/L (21-32); CREATININE 0.8 mg/dL (0.55-1.3); GLUCOSE,RANDOM 122 mg/dL (74-106); POTASSIUM 4.6 mmol/L (3.5-5.1); SGOT/AST 21 U/L (15-37); SGPT/ALT 24 U/L (13-61); SODIUM 138 mmol/L (136-145); TOT PROT 7.1 g/dl (6.4-8.2)
--- NOTE | 2018-01-22 13:28 | PN ---
Progress Note, Physician Chief Complaint: The patient had mild chest pain last night. He has no recurrent chest pain this morning and denies SOB or palpitation. Tele shows sinus rhythm with bradycardia. History of Present Illness: 67 year-old man, heavy smoker (1-/2 PPD X 40 years) with a history of cardiomyopathy, chronic systolic CHF with LVEF 26%, biventricular failure, atrial flutter s/p atrial flutter ablationn at [facility], atrial fibrillation, supposed to be on Eliquis and Amiodarone, HTN, HLD, COPD, PVD with extensive aorto-iliac and iliofemoral disease, seen by vascular surgeon, Dr. Vitale, not revasc yet, admitted 01/21/2018 with 2 wee exertional angina with evidence of NSTEMI. Remains stable since admission. Cardiac cath at [facility] is scheduled for tomorrow afternoon. - Current Medication List Current Medications: Active Medications Aspirin (Asa -) 81 mg PO DAILY АЛЕКСАНДР Last Admin: 01/22/18 09:56 Dose: 81 mg Atorvastatin Calcium (Lipitor -) 80 mg PO HS АЛЕКСАНДР Heparin Sodium (Porcine) (Heparin -) 1,000 unit IVPUSH PRN PRN PRN Reason: Heparin Last Admin: 01/22/18 12:30 Dose: 1,000 unit Heparin Sodium (Porcine) (Heparin -) 5,000 unit IVPUSH PRN PRN PRN Reason: Heparin Last Admin: 01/21/18 15:21 Dose: 5,000 unit Heparin Sodium (Porcine) 25, (000 unit/ Sodium Chloride) 500 mls @ 20 mls/hr IV TITR АЛЕКСАНДР; Protocol Last Titration: 01/22/18 12:30 Dose: 1,100 unit/hr, 22 mls/hr Lisinopril (Prinivil) 5 mg PO DAILY АЛЕКСАНДР Melatonin (Melatonin) 5 mg PO HS PRN PRN Reason: INSOMNIA Last Admin: 01/21/18 23:15 Dose: 5 mg Nitroglycerin (Nitrostat -) 0.4 mg SL PRN PRN PRN Reason: CHEST PAIN Pantoprazole Sodium (Protonix -) 40 mg PO DAILY АЛЕКСАНДР Last Admin: 01/22/18 09:55 Dose: 40 mg - Objective Vital Signs: Vital Signs Temperature 98.1 F 01/22/18 10:00 Pulse Rate 52 L 01/22/18 10:00 Respiratory Rate 20 10/07/18 10:00 Blood Pressure 125/70 01/22/18 10:00 O2 Sat by Pulse Oximetry (%) 99 01/22/18 09:00 General: Well developed. Well nourished. No acute distress. Head: Normocephalic. Atraumatic, Eyes: PERRLA, EOMI. Sclerae anicteric. Conjunctivae clear. Neck: Supple. No JVD. No bruits. Heart: Normal S1, S2: Regular rhythm and rate. No murmur. No gallop or rub. Lungs: Symmetrical air entry. Clear to auscultation. No crackles. No wheezing or rhonchi. Abdomen: Soft. Bowel sound positive. Non tender. No masses. Extremities: No edema. Labs: CBC, BMP 01/22/18 10:00 01/22/18 11:45 INR, PTT INR 1.02 (0.83-1.09) 01/21/18 15:14 Assessment/Plan 67 year-old man, heavy smoker (1-/2 PPD X 40 years) with a history of cardiomyopathy, chronic systolic CHF with LVEF 26%, biventricular failure, atrial flutter s/p atrial flutter ablationn at [facility], atrial fibrillation, supposed to be on Eliquis and Amiodarone, HTN, HLD, COPD, PVD with extensive aorto-iliac and iliofemoral disease, seen by vascular surgeon, Dr. Vitale, not revasc yet, admitted 01/21/2018 with 2 wee exertional angina with evidence of NSTEMI. Remains stable since admission. 1) Acute coronary syndrome with evidence of NSTEMI. -Cardiac cath with possible PCI at [facility] is scheduled for tomorrow afternoon. The patient can have breakfast tomorrow. -Continue IV heparin with bolus. -Continue Plavix 75 mg daily. -Start aspirin 81 mg daily. -Hold metoprolol due to sinus bradycardia. 2) Hyperlipidemia. Continue atorvastatin 80 mg daily. 3) Atrial fibrillation and flutter: Eliquis should be restarted after cardiac cath. Resume Amiodarone 200 mg daily for rhythm control after cath. 4) Biventricular failure with severe LV systolic dysfunction. The patient is stable without physical signs of CHF. He has good exercise tolerance and is able to walk over 10 blocks which is not consistent with his severe LV systolic dysfunction. Echo will be obtained at [facility]. Case discussed with Dr. Rachel Arce.
[2018-01-22] MEDS: HEPARIN - 25,000 UNIT in SODIUM CHLORIDE 495 ML IV SCH (14:55)
[2018-01-22] MEDS ORDERED: PT OWN MED DRAWER 7, Y5N ONE (15:16)
[2018-01-22] MEDS: ATORVASTATIN CA 80 MG TABLET (FP) PO SCH (22:07)
[2018-01-22] MEDS: ZOLPIDEM TARTRATE 5 MG TABLET PO PRN (22:26)
[2018-01-23 06:23] LABS: HEMATOCRIT 40.7 % (35.4-49); HEMOGLOBIN 13.5 GM/dL (11.7-16.9); MCH 28.2 pg (25.7-33.7); MCHC 33.1 g/dl (32.0-35.9); MEAN CELL VOLUME 85.1 fl (80-96); MEAN PLT VOLUME 8.7 fl (7.5-11.1); PLATELET COUNT 176 K/MM3 (134-434); RBC 4.78 M/mm3 (4.00-5.60); RDW 15.3 % (11.9-15.9); WHITE BLOOD COUNT 7.9 K/mm3 (4.0-10.0)
[2018-01-23] MEDS: ASPIRIN 81 MG CHEWABLE TABLETS PO SCH (09:15)
[2018-01-23] MEDS: PANTOPRAZOLE 40 MG TABLET (FP) PO SCH (09:15)
[2018-01-23] MEDS: LISINOPRIL 5 MG TABLET (FP) PO SCH (09:15)
--- NOTE | 2018-01-23 10:20 | PN ---
Progress Note, Physician Chief Complaint: none no cp oob - Current Medication List Current Medications: Active Medications Aspirin (Asa -) 81 mg PO DAILY ON [facility] OF [facility] Last Admin: 01/23/18 09:15 Dose: 81 mg Atorvastatin Calcium (Lipitor -) 80 mg PO HS ON LICENSE OF [facility] Last Admin: 01/22/18 22:07 Dose: 80 mg Heparin Sodium (Porcine) (Heparin -) 1,000 unit IVPUSH PRN PRN PRN Reason: Heparin Last Admin: 01/22/18 12:30 Dose: 1,000 unit Heparin Sodium (Porcine) (Heparin -) 5,000 unit IVPUSH PRN PRN PRN Reason: Heparin Last Admin: 01/21/18 15:21 Dose: 5,000 unit Heparin Sodium (Porcine) 25, (000 unit/ Sodium Chloride) 500 mls @ 20 mls/hr IV TITR ON LICENSE OF [facility]; Protocol Last Admin: 01/22/18 14:55 Dose: 1,100 unit/hr, 22 mls/hr Lisinopril (Prinivil) 5 mg PO DAILY ON LICENSE OF [facility] Last Admin: 01/23/18 09:15 Dose: 5 mg Melatonin (Melatonin) 5 mg PO HS PRN PRN Reason: INSOMNIA Last Admin: 01/21/18 23:15 Dose: 5 mg Nitroglycerin (Nitrostat -) 0.4 mg SL PRN PRN PRN Reason: CHEST PAIN Pantoprazole Sodium (Protonix -) 40 mg PO DAILY ON LICENSE OF [facility] Last Admin: 01/23/18 09:15 Dose: 40 mg Zolpidem Tartrate (Ambien -) 5 mg PO HS PRN PRN Reason: INSOMNIA Last Admin: 01/22/18 22:26 Dose: 5 mg - Objective Vital Signs: Vital Signs Temperature 98.2 F 01/23/18 06:00 Pulse Rate 56 L 01/23/18 06:00 Respiratory Rate 18 01/23/18 06:00 Blood Pressure 159/86 01/23/18 06:00 O2 Sat by Pulse Oximetry (%) 98 01/22/18 21:00 Constitutional: Yes: Well Nourished Eyes: Yes: WNL HENT: Yes: WNL Neck: Yes: WNL Cardiovascular: Yes: WNL Respiratory: Yes: WNL Gastrointestinal: Yes: WNL ...Rectal Exam: Yes: WNL Genitourinary: Yes: WNL Breast(s): Yes: WNL Musculoskeletal: Yes: WNL Extremities: Yes: WNL Edema: No Peripheral Pulses WNL: Yes Integumentary: Yes: WNL Neurological: Yes: WNL ...Motor Strength: WNL Psychiatric: Yes: WNL Labs: CBC, BMP 01/23/18 05:30 01/22/18 11:45 INR, PTT INR 1.02 (0.83-1.09) 01/21/18 15:14 Assessment/Plan pnd transfer kat card cath today pulm consult to eval lll ? chest tube in past will look at chart 7 yrs ago inmy office and f/u
--- NOTE | 2018-01-23 10:45 | EKG ---
Test Reason : Blood Pressure : / mmHG Vent. Rate : 046 BPM Atrial Rate : 053 BPM P-R Int : 138 ms QRS Dur : 088 ms QT Int : 468 ms P-R-T Axes : 066 037 024 degrees QTc Int : 409 ms SINUS BRADYCARDIA OTHERWISE NORMAL ECG WHEN COMPARED WITH ECG OF 21-JAN-2018 22:39, NO SIGNIFICANT CHANGE WAS FOUND Confirmed by WILL HALE MD ([id number]) on 01/23/2018 10:45:45 AM Referred By: Rachel OLGUIN Confirmed By:WILL HALE MD
--- NOTE | 2018-01-23 11:04 | EKG ---
Test Reason : Blood Pressure : / mmHG Vent. Rate : 046 BPM Atrial Rate : 046 BPM P-R Int : 146 ms QRS Dur : 082 ms QT Int : 468 ms P-R-T Axes : 054 017 046 degrees QTc Int : 409 ms SINUS BRADYCARDIA WHEN COMPARED WITH ECG OF 21-JAN-2018 16:35, NO SIGNIFICANT CHANGE WAS FOUND Confirmed by WILL HALE MD ([id number]) on 01/23/2018 11:04:19 AM Referred By: Confirmed By:WILL HALE MD
--- NOTE | 2018-01-23 11:09 | EKG ---
Test Reason : Blood Pressure : / mmHG Vent. Rate : 056 BPM Atrial Rate : 056 BPM P-R Int : 142 ms QRS Dur : 082 ms QT Int : 448 ms P-R-T Axes : 050 005 038 degrees QTc Int : 432 ms SINUS BRADYCARDIA ANTERIOR INFARCT (CITED ON OR BEFORE 21-JAN-2018) ABNORMAL ECG WHEN COMPARED WITH ECG OF 21-JAN-2018 12:15, T WAVE VARIATION Confirmed by GEOFFREY DEL RIO, WILL ([id number]) on 01/23/2018 11:08:49 AM Referred By: Confirmed By:WILL HALE MD
--- NOTE | 2018-01-23 12:04 | PN ---
Progress Note (short form) - Note Progress Note: PULMONARY CONSULTATION DICTATED 01/23/18 IMP ACUTE NSTEMI COPD TOBACCO ABUSE H/O LLL MASS /EFFUSION S/P VAT BX NEGATIVE FOR MALIGNANCY PLAN CARDIAC CATH PER CARDIOLOGY HEPARIN PLAVIX OUTPATIENT LOW DOSE CHEST CT FOR LUNG CANCER SCREENING PFTS OUTPATIENT SMOKING CESSATION COUNSELED DR KAMARA Problem List - Problems (1) COPD (chronic obstructive pulmonary disease) Code(s): J44.9 - CHRONIC OBSTRUCTIVE PULMONARY DISEASE, UNSPECIFIED (2) NSTEMI (non-ST elevated myocardial infarction) Code(s): I21.4 - NON-ST ELEVATION (NSTEMI) MYOCARDIAL INFARCTION (3) HTN (hypertension) Code(s): I10 - ESSENTIAL (PRIMARY) HYPERTENSION (4) Tobacco abuse Code(s): Z72.0 - TOBACCO USE (5) Tobacco abuse counseling Code(s): Z71.6 - TOBACCO ABUSE COUNSELING
--- NOTE | 2018-01-23 12:13 | ECHO ---
Name: PIERRE CLARA Exam:Adult Echocardiogram Study Date: 01/23/2018 08:40 AM Age: 67 yrs Reason For Study: NSTEMI Height: 73 in Weight: 185 lb BSA: 2.1 m2 MMode/2D Measurements & Calculations IVSd: 1.1 cm Ao root diam: 3.0 cm LVIDd: 6.1 cm LA dimension: 4.3 cm LVIDs: 3.9 cm ACS: 2.1 cm LVPWd: 1.1 cm IVSs: 1.3 cm LVPWs: 1.4 cm EDV(Teich): 184.6 ml ESV(Teich): 66.7 ml Doppler Measurements & Calculations MV E max kelechi: 75.8 cm/sec Ao V2 max: 167.7 cm/sec MV A max kelechi: 91.8 cm/sec Ao max P.2 mmHg MV E/A: 0.83 Ao V2 mean: 103.5 cm/sec Ao mean P.2 mmHg Ao V2 VTI: 31.7 cm MR max kelechi: 537.2 cm/sec TR max kelechi: 217.5 cm/sec MR max P.8 mmHg TR max P.0 mmHg PI end-d kelechi: 99.1 cm/sec Med Peak E' Kelechi: 8.0 cm/sec Med E/e': 9.5 Lat Peak E' Kelechi: 10.4 cm/sec Lat E/e': 7.3 Procedure A complete two-dimensional transthoracic echocardiogram was performed (2D, M-mode, Doppler and color flow Doppler). Left Ventricle The left ventricle is normal in size. Left ventricular systolic function is grossly normal. Ejection Fraction = 55-60%. There is mild anterior wall hypokinesis. There is basal anteroseptal wall mild hypokinesis. There is mid anteroseptal wall mild hypokinesis. There are regional wall motion abnormalities as specified. Right Ventricle The right ventricle is normal size. The right ventricular systolic function is normal. Atria The left atrium is mildly dilated. Right atrial size is normal. Mitral Valve Mildly redundant anterior mitral valve leaflet. There is moderate mitral regurgitation. Tricuspid Valve The tricuspid valve is normal in structure and function. There is mild tricuspid regurgitation. Right ventricular systolic pressure is normal. Aortic Valve The aortic valve is normal in structure and function. No aortic regurgitation is present. Pulmonic Valve The pulmonic valve is not well visualized. Mild pulmonic valvular regurgitation. Great Vessels The aortic root is normal size. Pericardium/Pleura There is no pericardial effusion. Interpretation Summary The left ventricle is normal in size. Left ventricular systolic function is grossly normal. Ejection Fraction = 55-60%. There are regional wall motion abnormalities as specified. The right ventricular systolic function is normal. The left atrium is mildly dilated. Right atrial size is normal. Mildly redundant anterior mitral valve leaflet There is moderate mitral regurgitation. There is mild tricuspid regurgitation. Right ventricular systolic pressure is normal. Mild pulmonic valvular regurgitation. The aortic root is normal size. Previous study is not avaliable for isaias Vargas MD 01/23/2018 12:12 PM
[2018-01-23] MEDS: HEPARIN - 25,000 UNIT in SODIUM CHLORIDE 495 ML IV SCH (14:56)
--- NOTE | 2018-01-23 18:51 | CONS ---
DATE OF CONSULTATION: 01/23/2018 PULMONARY CONSULTATION REFERRING PHYSICIAN: Toñito Arce M.D. HISTORY OF PRESENT ILLNESS: The patient is a 67-year-old black male with a past medical history of hyperlipidemia, longstanding history of tobacco use, approximately 1 to 1-1/2 packs for 40 years, history of left pleural effusion, left pleural mass status post thoracoscopy with biopsy and decortication 2011, biopsy benign, consistent with inflammation, no adenocarcinoma. Admitted to [facility] with intermittent chest pain and radiation to the left arm for approximately 2 weeks. Patient states approximately a week and a half to two weeks prior to admission while sleeping, he noticed chest pain described as pressure-like sensation radiating to the left arm, associated with diaphoresis. He initially did not seek medical attention. Chest pain lasted a few minutes and resolved with rest. The symptoms continued over the next week and a half or so, for which he was sent to the emergency room. In the ER, he was noted to have elevated troponin. Seen by yardage caller, and felt acute coronary syndrome with evidence of non-STEMI. He is on IV heparin, Plavix, and aspirin. Patient is scheduled for the PCI at [facility] today. Patient does complain of shortness of breath with exertion. Denies any chronic hemoptysis. Denies any fevers, weight loss, night sweats. Denies any history of recent travel. There is no history of DVT or PE in the past. PAST MEDICAL HISTORY: Again includes left pleural effusion, left pleural mass status post thoracoscopy, biopsy negative. History of COPD, cardiomyopathy, chronic systolic CHF with left ventricular systolic ejection fraction 26%, biventricular failure, atrial flutter, status post ablation at [facility], history of atrial fibrillation, apparently supposed to be on Eliquis and amiodarone, hypertension, hyperlipidemia, COPD, PVD, extensive aortoiliac and ileofemoral disease. SOCIAL HISTORY: Positive history of tobacco use 1 to 1-1/2 packs 40 years, currently still smoking, and currently employed in maintenance. REVIEW OF SYSTEMS: Positive chest pain. Positive occasional palpitation. No nausea. No vomiting. Positive diaphoresis. No shortness of breath. No cough. No hemoptysis. No abdominal pain. CURRENT MEDICATIONS: Include Prinivil, heparin, Ambien, Lipitor, Nitrostat, aspirin, melatonin, and Protonix. PHYSICAL EXAMINATION: GENERAL: The patient is a well-developed, well-nourished male, awake and alert, in no acute distress. VITAL SIGNS: He is afebrile. Blood pressure 145/85, respiratory rate 18, O2 saturation 98% on room air. HEENT: Normocephalic, atraumatic. NECK: Supple. HEART: Regular S1, S2. CHEST: Clear. ABDOMEN: Soft, bowel sounds positive. EXTREMITIES: No cyanosis, edema. LABORATORY: WBC 7.9, hemoglobin 13.5, hematocrit 40.7, platelet count of 176,000. PTT is 70.8. BUN 12, creatinine 0.7, troponin initially was 0.18, high of 0.27, currently 0.15. Chest x-ray, no infiltrates, no effusion. IMPRESSION: 1. Acute [id number] myocardial infarction. 2. History of left pleural effusion mass status post thoracoscopy, biopsy negative. 3. Chronic obstructive pulmonary disease. 4. Congestive heart failure. 5. Atrial flutter status post ablation. 6. Hypertension. 7. Hyperlipidemia. PLAN: Cardiac catheterization as per cardiology. Would recommend smoking cessation general counsel. Also recommend ST scan low dose with patient discharged [facility] for long cancer screening and continue followup daily until yearly in view of patient's long history of tobacco use. Inhaled bronchodilators p.r.n. Pulmonary function test as outpatient. RAJNI KAMARA M.D. PATRICE/[id number]
[2018-01-23] MEDS: ATORVASTATIN CA 80 MG TABLET (FP) PO SCH (21:26)
[2018-01-23] MEDS: ZOLPIDEM TARTRATE 5 MG TABLET PO PRN (21:26)
[2018-01-24 07:28] LABS: HEMATOCRIT 39.9 % (35.4-49); HEMOGLOBIN 13.3 GM/dL (11.7-16.9); MCHC 33.4 g/dl (32.0-35.9); MEAN CELL VOLUME 83.8 fl (80-96); MEAN PLT VOLUME 8.8 fl (7.5-11.1); PLATELET COUNT 176 K/MM3 (134-434); RBC 4.76 M/mm3 (4.00-5.60); RDW 15.1 % (11.9-15.9); WHITE BLOOD COUNT 7.8 K/mm3 (4.0-10.0)
[2018-01-24] MEDS: LISINOPRIL 5 MG TABLET (FP) PO SCH (09:36)
[2018-01-24] MEDS: PANTOPRAZOLE 40 MG TABLET (FP) PO SCH (09:36)
[2018-01-24] MEDS: ASPIRIN 81 MG CHEWABLE TABLETS PO SCH (09:37)
--- NOTE | 2018-01-24 11:31 | PN ---
Progress Note, Physician History of Present Illness: PULMONARY ALERT,COMFORTABLE,-SOB,-CP,MILD LEFT ARM DISCOMFORT - Current Medication List Current Medications: Active Medications Aspirin (Asa -) 81 mg PO DAILY [facility] Last Admin: 01/24/18 09:37 Dose: 81 mg Atorvastatin Calcium (Lipitor -) 80 mg PO HS [facility] Last Admin: 01/23/18 21:26 Dose: 80 mg Heparin Sodium (Porcine) (Heparin -) 1,000 unit IVPUSH PRN PRN PRN Reason: Heparin Last Admin: 01/22/18 12:30 Dose: 1,000 unit Heparin Sodium (Porcine) (Heparin -) 5,000 unit IVPUSH PRN PRN PRN Reason: Heparin Last Admin: 01/21/18 15:21 Dose: 5,000 unit Heparin Sodium (Porcine) 25, (000 unit/ Sodium Chloride) 500 mls @ 20 mls/hr IV TITR [facility]; Protocol Last Admin: 01/23/18 14:56 Dose: 1,050 unit/hr, 21 mls/hr Lisinopril (Prinivil) 5 mg PO DAILY [facility] Last Admin: 01/24/18 09:36 Dose: 5 mg Melatonin (Melatonin) 5 mg PO HS PRN PRN Reason: INSOMNIA Last Admin: 01/21/18 23:15 Dose: 5 mg Nitroglycerin (Nitrostat -) 0.4 mg SL PRN PRN PRN Reason: CHEST PAIN Pantoprazole Sodium (Protonix -) 40 mg PO DAILY [facility] Last Admin: 01/24/18 09:36 Dose: 40 mg Zolpidem Tartrate (Ambien -) 5 mg PO HS PRN PRN Reason: INSOMNIA Last Admin: 01/23/18 21:26 Dose: 5 mg - Objective Vital Signs: Vital Signs Temperature 98.6 F 01/24/18 05:50 Pulse Rate 56 L 01/24/18 05:50 Respiratory Rate 18 01/24/18 05:50 Blood Pressure 144/82 01/24/18 05:50 O2 Sat by Pulse Oximetry (%) 98 01/23/18 21:00 Constitutional: Yes: Well Nourished, Calm Eyes: Yes: WNL HENT: Yes: WNL Neck: Yes: WNL Cardiovascular: Yes: Regular Rate and Rhythm, S1, S2 Respiratory: Yes: CTA Bilaterally Gastrointestinal: Yes: Normal Bowel Sounds, Soft Extremities: Yes: WNL Edema: No Labs: CBC, BMP 01/24/18 06:55 01/22/18 11:45 INR, PTT INR 1.02 (0.83-1.09) 01/21/18 15:14 Problem List - Problems (1) COPD (chronic obstructive pulmonary disease) Code(s): J44.9 - CHRONIC OBSTRUCTIVE PULMONARY DISEASE, UNSPECIFIED (2) NSTEMI (non-ST elevated myocardial infarction) Code(s): I21.4 - NON-ST ELEVATION (NSTEMI) MYOCARDIAL INFARCTION (3) HTN (hypertension) Code(s): I10 - ESSENTIAL (PRIMARY) HYPERTENSION (4) Tobacco abuse Code(s): Z72.0 - TOBACCO USE (5) Tobacco abuse counseling Code(s): Z71.6 - TOBACCO ABUSE COUNSELING Assessment/Plan IMP ACUTE NSTEMI COPD TOBACCO ABUSE H/O LLL MASS /EFFUSION S/P VAT BX NEGATIVE FOR MALIGNANCY PLAN CARDIAC CATH PER CARDIOLOGY [facility] OUTPATIENT LOW DOSE CHEST CT FOR LUNG CANCER SCREENING PFTS OUTPATIENT SMOKING CESSATION COUNSELED DR KAMARA Problem List - Problems (1) COPD (chronic obstructive pulmonary disease) Code(s): J44.9 - CHRONIC OBSTRUCTIVE PULMONARY DISEASE, UNSPECIFIED (2) NSTEMI (non-ST elevated myocardial infarction) Code(s): I21.4 - NON-ST ELEVATION (NSTEMI) MYOCARDIAL INFARCTION (3) HTN (hypertension) Code(s): I10 - ESSENTIAL (PRIMARY) HYPERTENSION (4) Tobacco abuse Code(s): Z72.0 - TOBACCO USE (5) Tobacco abuse counseling Code(s): Z71.6 - TOBACCO ABUSE COUNSELING
[2018-01-24] MEDS: HEPARIN - 25,000 UNIT in SODIUM CHLORIDE 495 ML IV SCH (15:09)
--- NOTE | 2018-01-24 17:53 | PN ---
Progress Note, Physician Chief Complaint: Chest pain History of Present Illness: 67 year-old man, heavy smoker (1-04/19 PPD X 40 years) with a history of hyperlipidemia presents to ED 01/21/2018 with intermittent, predominantly chest pain for 2 weeks. The patient has been experiencing exertional chest pain with radiation to his left arm with associated diaphoresis for 2 weeks. His chest pain can be resolved after 10-15 minute rest. Minimal exertion can trigger his symptoms. He also reports some leg tingling and nausea. He has no chest pain at rest, SOB, palpitation, syncope or near syncope. No edema, orthopnea or PND. ECG shows inferolateral T inversion. First troponin is mildly elevated. The patient has been stable in ED without recurrent chest pain. - Current Medication List Current Medications: Active Medications Aspirin (Asa -) 81 mg PO DAILY [facility] Last Admin: 01/24/18 09:37 Dose: 81 mg Atorvastatin Calcium (Lipitor -) 80 mg PO HS [facility] Last Admin: 01/23/18 21:26 Dose: 80 mg Heparin Sodium (Porcine) (Heparin -) 1,000 unit IVPUSH PRN PRN PRN Reason: Heparin Last Admin: 01/22/18 12:30 Dose: 1,000 unit Heparin Sodium (Porcine) (Heparin -) 5,000 unit IVPUSH PRN PRN PRN Reason: Heparin Last Admin: 01/21/18 15:21 Dose: 5,000 unit Heparin Sodium (Porcine) 25, (000 unit/ Sodium Chloride) 500 mls @ 20 mls/hr IV TITR [facility]; Protocol Last Admin: 01/24/18 15:09 Dose: 1,050 unit/hr, 21 mls/hr Lisinopril (Prinivil) 5 mg PO DAILY [facility] Last Admin: 01/24/18 09:36 Dose: 5 mg Melatonin (Melatonin) 5 mg PO HS PRN PRN Reason: INSOMNIA Last Admin: 01/21/18 23:15 Dose: 5 mg Nitroglycerin (Nitrostat -) 0.4 mg SL PRN PRN PRN Reason: CHEST PAIN Pantoprazole Sodium (Protonix -) 40 mg PO DAILY [facility] Last Admin: 01/24/18 09:36 Dose: 40 mg Zolpidem Tartrate (Ambien -) 5 mg PO HS PRN PRN Reason: INSOMNIA Last Admin: 01/23/18 21:26 Dose: 5 mg - Objective Vital Signs: Vital Signs Temperature 97.8 F 01/24/18 15:38 Pulse Rate 68 01/24/18 15:38 Respiratory Rate 20 01/24/18 15:38 Blood Pressure 142/68 01/24/18 15:38 O2 Sat by Pulse Oximetry (%) 98 01/24/18 09:00 Constitutional: Yes: Well Nourished Eyes: Yes: WNL HENT: Yes: WNL Neck: Yes: WNL Cardiovascular: Yes: Regular Rate and Rhythm (NL S1S2) Respiratory: Yes: CTA Bilaterally Gastrointestinal: Yes: Soft Extremities: Yes: WNL Edema: No Neurological: Yes: Alert, Oriented (Non focal) Labs: CBC, BMP 01/24/18 06:55 01/22/18 11:45 INR, PTT INR 1.02 (0.83-1.09) 01/21/18 15:14 Assessment/Plan 67 year-old man, heavy smoker (1-/2 PPD X 40 years) with a history of hyperlipidemia presents to ED 01/21/2018 with intermittent, predominantly chest pain for 2 weeks with evidence of NSTEMI. 1) Acute coronary syndrome with evidence of NSTEMI. -Continue IV heparin with bolus. -Continue aspirin 81 mg daily. -No Beta Blockers while tachycardiac -Cardiac cath for possible PCI at [facility] when insurance issues allow. 2) Hyperlipidemia. Continue atorvastatin 80 mg daily.
[2018-01-24] MEDS: ATORVASTATIN CA 80 MG TABLET (FP) PO SCH (20:59)
[2018-01-24] MEDS: ZOLPIDEM TARTRATE 5 MG TABLET PO PRN (22:19)
[2018-01-25 06:56] LABS: HEMATOCRIT 39.5 % (35.4-49); HEMOGLOBIN 13.3 GM/dL (11.7-16.9); MCH 28.2 pg (25.7-33.7); MCHC 33.6 g/dl (32.0-35.9); MEAN CELL VOLUME 84.1 fl (80-96); MEAN PLT VOLUME 8.8 fl (7.5-11.1); PLATELET COUNT 180 K/MM3 (134-434); RDW 15.6 % (11.9-15.9)
[2018-01-25] MEDS: HEPARIN - 25,000 UNIT in SODIUM CHLORIDE 495 ML IV SCH (10:33)
[2018-01-25] MEDS: PANTOPRAZOLE 40 MG TABLET (FP) PO SCH (10:33)
[2018-01-25] MEDS: LISINOPRIL 5 MG TABLET (FP) PO SCH (10:33)
[2018-01-25] MEDS: ASPIRIN 81 MG CHEWABLE TABLETS PO SCH (10:33)
--- NOTE | 2018-01-25 10:46 | PN ---
Progress Note, Physician History of Present Illness: PULMONARY ALERT,NO DISTRESS,-CP,-SOB - Current Medication List Current Medications: Active Medications Aspirin (Asa -) 81 mg PO DAILY [facility] Last Admin: 01/25/18 10:33 Dose: 81 mg Atorvastatin Calcium (Lipitor -) 80 mg PO HS [facility] Last Admin: 01/24/18 20:59 Dose: 80 mg Heparin Sodium (Porcine) (Heparin -) 1,000 unit IVPUSH PRN PRN PRN Reason: Heparin Last Admin: 01/22/18 12:30 Dose: 1,000 unit Heparin Sodium (Porcine) (Heparin -) 5,000 unit IVPUSH PRN PRN PRN Reason: Heparin Last Admin: 01/21/18 15:21 Dose: 5,000 unit Heparin Sodium (Porcine) 25, (000 unit/ Sodium Chloride) 500 mls @ 20 mls/hr IV TITR [facility]; Protocol Last Admin: 01/25/18 10:33 Dose: 1,050 unit/hr, 21 mls/hr Lisinopril (Prinivil) 5 mg PO DAILY [facility] Last Admin: 01/25/18 10:33 Dose: 5 mg Melatonin (Melatonin) 5 mg PO HS PRN PRN Reason: INSOMNIA Last Admin: 01/21/18 23:15 Dose: 5 mg Nitroglycerin (Nitrostat -) 0.4 mg SL PRN PRN PRN Reason: CHEST PAIN Pantoprazole Sodium (Protonix -) 40 mg PO DAILY [facility] Last Admin: 01/25/18 10:33 Dose: 40 mg Zolpidem Tartrate (Ambien -) 5 mg PO HS PRN PRN Reason: INSOMNIA Last Admin: 01/24/18 22:19 Dose: 5 mg - Objective Vital Signs: Vital Signs Temperature 98 F 01/25/18 10:38 Pulse Rate 52 L 01/25/18 10:38 Respiratory Rate 20 01/25/18 10:38 Blood Pressure 136/75 01/25/18 10:38 O2 Sat by Pulse Oximetry (%) 100 01/25/18 08:40 Constitutional: Yes: Well Nourished, Calm Eyes: Yes: WNL HENT: Yes: WNL Neck: Yes: WNL Cardiovascular: Yes: Regular Rate and Rhythm, S1, S2 Respiratory: Yes: CTA Bilaterally Gastrointestinal: Yes: Normal Bowel Sounds, Soft Extremities: Yes: WNL Edema: No Labs: CBC, BMP 01/25/18 05:30 01/22/18 11:45 INR, PTT INR 1.02 (0.83-1.09) 01/21/18 15:14 Problem List - Problems (1) COPD (chronic obstructive pulmonary disease) Code(s): J44.9 - CHRONIC OBSTRUCTIVE PULMONARY DISEASE, UNSPECIFIED (2) NSTEMI (non-ST elevated myocardial infarction) Code(s): I21.4 - NON-ST ELEVATION (NSTEMI) MYOCARDIAL INFARCTION (3) HTN (hypertension) Code(s): I10 - ESSENTIAL (PRIMARY) HYPERTENSION (4) Tobacco abuse Code(s): Z72.0 - TOBACCO USE (5) Tobacco abuse counseling Code(s): Z71.6 - TOBACCO ABUSE COUNSELING Assessment/Plan IMP ACUTE NSTEMI COPD TOBACCO ABUSE H/O LLL MASS /EFFUSION S/P VAT BX NEGATIVE FOR MALIGNANCY PLAN CARDIAC CATH [facility] OUTPATIENT LOW DOSE CHEST CT FOR LUNG CANCER SCREENING PFTS OUTPATIENT SMOKING CESSATION COUNSELED DR KAMARA Problem List - Problems (1) COPD (chronic obstructive pulmonary disease) Code(s): J44.9 - CHRONIC OBSTRUCTIVE PULMONARY DISEASE, UNSPECIFIED (2) NSTEMI (non-ST elevated myocardial infarction) Code(s): I21.4 - NON-ST ELEVATION (NSTEMI) MYOCARDIAL INFARCTION (3) HTN (hypertension) Code(s): I10 - ESSENTIAL (PRIMARY) HYPERTENSION (4) Tobacco abuse Code(s): Z72.0 - TOBACCO USE (5) Tobacco abuse counseling Code(s): Z71.6 - TOBACCO ABUSE COUNSELING
--- NOTE | 2018-01-25 13:42 | PN ---
Progress Note, Physician Chief Complaint: Chest pain History of Present Illness: 67 year-old man, heavy smoker (1-04/19 PPD X 40 years) with a history of hyperlipidemia presents to ED 01/21/2018 with intermittent, predominantly chest pain for 2 weeks. The patient has been experiencing exertional chest pain with radiation to his left arm with associated diaphoresis for 2 weeks. His chest pain can be resolved after 10-15 minute rest. Minimal exertion can trigger his symptoms. He also reports some leg tingling and nausea. He has no chest pain at rest, SOB, palpitation, syncope or near syncope. No edema, orthopnea or PND. ECG shows inferolateral T inversion. First troponin is mildly elevated. The patient has been stable in ED without recurrent chest pain. - Current Medication List Current Medications: Active Medications Aspirin (Asa -) 81 mg PO DAILY [facility] Last Admin: 01/25/18 10:33 Dose: 81 mg Atorvastatin Calcium (Lipitor -) 80 mg PO HS [facility] Last Admin: 01/24/18 20:59 Dose: 80 mg Heparin Sodium (Porcine) (Heparin -) 1,000 unit IVPUSH PRN PRN PRN Reason: Heparin Last Admin: 01/22/18 12:30 Dose: 1,000 unit Heparin Sodium (Porcine) (Heparin -) 5,000 unit IVPUSH PRN PRN PRN Reason: Heparin Last Admin: 01/21/18 15:21 Dose: 5,000 unit Heparin Sodium (Porcine) 25, (000 unit/ Sodium Chloride) 500 mls @ 20 mls/hr IV TITR [facility]; Protocol Last Admin: 01/25/18 10:33 Dose: 1,050 unit/hr, 21 mls/hr Lisinopril (Prinivil) 5 mg PO DAILY [facility] Last Admin: 01/25/18 10:33 Dose: 5 mg Melatonin (Melatonin) 5 mg PO HS PRN PRN Reason: INSOMNIA Last Admin: 01/21/18 23:15 Dose: 5 mg Nitroglycerin (Nitrostat -) 0.4 mg SL PRN PRN PRN Reason: CHEST PAIN Pantoprazole Sodium (Protonix -) 40 mg PO DAILY [facility] Last Admin: 01/25/18 10:33 Dose: 40 mg Zolpidem Tartrate (Ambien -) 5 mg PO HS PRN PRN Reason: INSOMNIA Last Admin: 01/24/18 22:19 Dose: 5 mg - Objective Vital Signs: Vital Signs Temperature 98 F 01/25/18 10:38 Pulse Rate 52 L 01/25/18 10:38 Respiratory Rate 20 01/25/18 10:38 Blood Pressure 136/75 01/25/18 10:38 O2 Sat by Pulse Oximetry (%) 100 01/25/18 08:40 Constitutional: Yes: Well Nourished Eyes: Yes: WNL HENT: Yes: WNL Neck: Yes: WNL Cardiovascular: Yes: Regular Rate and Rhythm (NL S1S2, No [facility]) Respiratory: Yes: CTA Bilaterally Gastrointestinal: Yes: Normal Bowel Sounds, Soft Extremities: Yes: WNL Edema: No Neurological: Yes: Alert, Oriented ([place] nonfocal) Labs: CBC, BMP 01/25/18 05:30 01/22/18 11:45 INR, PTT INR 1.02 (0.83-1.09) 01/21/18 15:14 Assessment/Plan 67 year-old man, heavy smoker (1-/2 PPD X 40 years) with a history of hyperlipidemia presents to ED 01/21/2018 with intermittent, predominantly chest pain for 2 weeks with evidence of NSTEMI. 1) Acute coronary syndrome with evidence of NSTEMI. -Continue IV heparin with bolus. -Continue aspirin 81 mg daily. -No Beta Blockers while tachycardiac 2) Hyperlipidemia. Continue atorvastatin 80 mg daily. Planned for transfler to [facility] and cardiac cath tomorrow (01/26/18) Keep NPO after midnight tonight.
[2018-01-25] MEDS: ATORVASTATIN CA 80 MG TABLET (FP) PO SCH (21:43)
[2018-01-25] MEDS: ZOLPIDEM TARTRATE 5 MG TABLET PO PRN (21:48)
--- NOTE | 2018-01-25 23:30 | PN ---
Progress Note, Physician Chief Complaint: no complaints vss - Current Medication List Current Medications: Active Medications Aspirin (Asa -) 81 mg PO DAILY [facility] Last Admin: 01/25/18 10:33 Dose: 81 mg Atorvastatin Calcium (Lipitor -) 80 mg PO HS [facility] Last Admin: 01/25/18 21:43 Dose: 80 mg Heparin Sodium (Porcine) (Heparin -) 1,000 unit IVPUSH PRN PRN PRN Reason: Heparin Last Admin: 01/22/18 12:30 Dose: 1,000 unit Heparin Sodium (Porcine) (Heparin -) 5,000 unit IVPUSH PRN PRN PRN Reason: Heparin Last Admin: 01/21/18 15:21 Dose: 5,000 unit Heparin Sodium (Porcine) 25, (000 unit/ Sodium Chloride) 500 mls @ 20 mls/hr IV TITR [facility]; Protocol Last Admin: 01/25/18 10:33 Dose: 1,050 unit/hr, 21 mls/hr Lisinopril (Prinivil) 5 mg PO DAILY [facility] Last Admin: 01/25/18 10:33 Dose: 5 mg Melatonin (Melatonin) 5 mg PO HS PRN PRN Reason: INSOMNIA Last Admin: 01/21/18 23:15 Dose: 5 mg Nitroglycerin (Nitrostat -) 0.4 mg SL PRN PRN PRN Reason: CHEST PAIN Pantoprazole Sodium (Protonix -) 40 mg PO DAILY [facility] Last Admin: 01/25/18 10:33 Dose: 40 mg - Objective Vital Signs: Vital Signs Temperature 98.4 F 01/25/18 21:00 Pulse Rate 53 L 01/25/18 21:00 Respiratory Rate 18 01/25/18 21:00 Blood Pressure 130/73 01/25/18 21:00 O2 Sat by Pulse Oximetry (%) 99 01/25/18 21:00 Constitutional: Yes: Well Nourished Eyes: Yes: WNL HENT: Yes: WNL Neck: Yes: WNL Cardiovascular: Yes: WNL Respiratory: Yes: WNL Gastrointestinal: Yes: WNL ...Rectal Exam: Yes: WNL Genitourinary: Yes: WNL Breast(s): Yes: WNL Musculoskeletal: Yes: WNL Extremities: Yes: WNL Edema: No Peripheral Pulses WNL: Yes Integumentary: Yes: WNL Neurological: Yes: WNL ...Motor Strength: WNL Psychiatric: Yes: WNL Labs: CBC, BMP 01/25/18 05:30 01/22/18 11:45 INR, PTT INR 1.02 (0.83-1.09) 01/21/18 15:14 Assessment/Plan npo [place] awaiting [place] [facility] [place]
[2018-01-26 06:29] VITALS: BP 136/65; PULSE 54; TEMP 98.6
[2018-01-26 06:45] LABS: HEMATOCRIT 39.3 % (35.4-49); HEMOGLOBIN 13.1 GM/dL (11.7-16.9); MCH 28.1 pg (25.7-33.7); MCHC 33.4 g/dl (32.0-35.9); MEAN CELL VOLUME 84.1 fl (80-96); PLATELET COUNT 177 K/MM3 (134-434); RBC 4.67 M/mm3 (4.00-5.60); RDW 15.1 % (11.9-15.9); WHITE BLOOD COUNT 8.3 K/mm3 (4.0-10.0)
[2018-01-26] MEDS: PANTOPRAZOLE 40 MG TABLET (FP) PO SCH (09:32)
[2018-01-26] MEDS: ASPIRIN 81 MG CHEWABLE TABLETS PO SCH (09:32)
[2018-01-26] MEDS: LISINOPRIL 5 MG TABLET (FP) PO SCH (09:32)
== END 2018-01-26 10:29 | disposition short-term general hospital (02) | DRG 190 ==
LOC: JER 12:14 → JERBED 15:27 → J4W 20:48
PROVIDERS: ADMIT Family Medicine; ATTEND Family Medicine
DX: I21.4 Non-ST elevation (NSTEMI) myocardial infarction (principal); E78.5 Hyperlipidemia, unspecified; I48.92 Unspecified atrial flutter; I42.9 Cardiomyopathy, unspecified; I50.22 Chronic systolic (congestive) heart failure; J44.9 Chronic obstructive pulmonary disease, unspecified; I73.9 Peripheral vascular disease, unspecified; I50.82 Biventricular heart failure; I48.91 Unspecified atrial fibrillation; I11.0 Hypertensive heart disease with heart failure; Z87.891 Personal history of nicotine dependence
CPT/HCPCS: 36415; 71046-TC-FY; 80053; 82550; 82553; 83690; 84484; 85025; 85027; 85610; 85730; 86850; 86900; 86901; 90688; 93005; 93010; 93306-TC; 99285-25; G0008; J0131; J1644

== ENCOUNTER 2021-04-22 17:41 | Observation (INO) | payer OTHER ==
[2021-04-22 18:29] VITALS: BMI 22.3
[2021-04-22] MEDS ORDERED: SODIUM CHLORIDE 500 ML IV STA ×2 (21:58→23:26)
[2021-04-22 22:48] LABS: VENOUS BASE EXCESS -3.7 mmol/L (-2-2); VENOUS O2 SATURATION 88.3 % (70-80); VENOUS PCO2 32.6 mmHg (38-52); VENOUS PH 7.406 (7.310-7.410)
[2021-04-22 22:49] LABS: BASO % 1.6 % (0-2.0); EOS % 2.5 % (0-4.5); HEMATOCRIT 38.2 % (35.4-49); HEMOGLOBIN 13.2 GM/dL (11.7-16.9); LYMPH % 23.6 % (8-40); MCH 27.6 pg (25.7-33.7); MCHC 34.4 g/dl (32.0-35.9); MEAN CELL VOLUME 80.1 fl (80-96); MEAN PLT VOLUME 9.1 fl (7.5-11.1); MONO % 5.3 % (3.8-10.2); PLATELET COUNT 295 10^3/uL (134-434); RBC 4.78 M/mm3 (4.00-5.60); RDW 14.4 % (11.9-15.9); WHITE BLOOD COUNT 8.9 K/mm3 (4.0-10.0)
[2021-04-22 23:11] LABS: CHLORIDE 96 mmol/L (98-107); SODIUM 131 mmol/L (136-145)
[2021-04-22 23:14] LABS: CALCIUM 9.6 mg/dL (8.5-10.1)
[2021-04-22 23:15] LABS: ALBUMIN 3.7 g/dl (3.4-5.0); ANION GAP 15 MMOL/L (8-16); BLOOD UREA NITROGEN 18.1 mg/dL (7-18); CO2 20 mmol/L (21-32)
[2021-04-22 23:18] LABS: CREATININE 1.1 mg/dL (0.55-1.3); SGOT/AST 25 U/L (15-37); SGPT/ALT 37 U/L (13-61)
[2021-04-22 23:19] LABS: TOT PROT 7.7 g/dl (6.4-8.2)
[2021-04-22 23:20] LABS: BILIRUBIN,TOTAL 0.6 mg/dL (0.2-1)
[2021-04-22 23:21] LABS: ALK PHOS 328 U/L (45-117)
[2021-04-22] MEDS ORDERED: SODIUM CHLORIDE 1,000 ML IV SCH (23:45)
[2021-04-22] MEDS ORDERED: FENOFIBRIC ACID 135 MG CAP PO SCH (23:54)
[2021-04-22] MEDS ORDERED: ZOLPIDEM TARTRATE 5 MG TABLET PO PRN (23:54)
[2021-04-23 00:17] LABS: GLUCOSE,RANDOM 428 mg/dL (74-106)
[2021-04-23] MEDS ORDERED: INSULIN REGULAR HUMAN 100 UNITS/ML *VIAL IVPUSH ONE (00:45)
[2021-04-23 00:47] LABS: EPI CELLS 3 /uL (0-25.1); HYALINE CASTS 0 /uL (0-3.1); URINE APPEARANCE CLEAR; URINE BACTERIA 1 /uL (0-1359); URINE BILIRUBIN NEGATIVE (NEGATIVE); URINE COLOR YELLOW; URINE GLUCOSE (UA) 3+ (NEGATIVE); URINE KETONE 1+ (NEGATIVE); URINE LEUK ESTERASE NEGATIVE (NEGATIVE); URINE NITRITE NEGATIVE (NEGATIVE); URINE PROTEIN 1+ (NEGATIVE); URINE RBC 3 /uL (0-23.9); URINE UROBILINOGEN 0.2 mg/dL (0.2-1.0); URINE WBC 3 /uL (0-25.8)
[2021-04-23] MEDS: amLODIPine BESYLATE 5 MG TABLET (FP) PO SCH ×2 (00:49→15:18)
[2021-04-23] MEDS: OXYBUTYNIN CHLORIDE 5 MG TABLET PO SCH ×2 (00:49→15:18)
[2021-04-23] MEDS: metoPROLOL SUCCINATE 25 MG TAB.SR.24H (FP) PO SCH ×2 (00:50→15:18)
[2021-04-23] MEDS: CLOPIDOGREL BISULFATE 75 MG TABLET (FP) PO SCH ×2 (00:50→15:18)
[2021-04-23] MEDS: ALLOPURINOL 300 MG TABLET (FP) PO SCH ×2 (01:02→15:19)
[2021-04-23] MEDS: EZETIMIBE 10 MG TABLET (FP) PO SCH ×2 (01:02→15:18)
[2021-04-23] MEDS ORDERED: INSULIN (LEVEMIR) 100 UNITS/ML UNITS SQ SCH (07:00)
[2021-04-23] MEDS ORDERED: ASPIRIN 81 MG CHEWABLE TABLETS PO SCH (10:00)
[2021-04-23] MEDS ORDERED: ASPIRIN COATED 81 MG TABLET.EC PO SCH (10:00)
[2021-04-23] MEDS ORDERED: metFORMIN HCL 500 MG TABLET (FP) PO SCH (16:30)
[2021-04-23 18:11] VITALS: BP 110/65; PULSE 70; TEMP 97.9
[2021-04-24] MEDS ORDERED: INSULIN (LEVEMIR) 100 UNITS/ML UNITS SQ SCH (07:00)
== END 2021-04-23 15:18 | disposition home or self-care (01) ==
LOC: JER 17:41 → INTOOBSV 23:43 → UNDOADMOB 23:43 → JERBED 23:43
PROVIDERS: ADMIT Family Medicine; ATTEND Family Medicine
PROC: 3E013VG Introduction of Insulin into Subcutaneous Tissue, Percutaneous Approach (ICD-10-PCS; principal; 2021-04-23)
PROC: 3E0337Z Introduction of Electrolytic and Water Balance Substance into Peripheral Vein, Percutaneous Approach (ICD-10-PCS; 2021-04-23)
DX: E11.65 Type 2 diabetes mellitus with hyperglycemia (principal); E11.00 Type 2 diabetes mellitus with hyperosmolarity without nonketotic hyperglycemic-hyperosmolar coma (NKHHC); I25.10 Atherosclerotic heart disease of native coronary artery without angina pectoris; Z85.46 Personal history of malignant neoplasm of prostate; E78.5 Hyperlipidemia, unspecified; F17.210 Nicotine dependence, cigarettes, uncomplicated
CPT/HCPCS: 36415; 71045-TC-FY; 71250-TC; 74176-TC; 80053; 81003; 82010; 82550; 82803; 82962; 84153; 84154; 84484; 85025; 93005; 93010; 96361; 96374; 99285-25; C9803-CS; G0378; U0003; U0005

== ENCOUNTER 2022-02-01 04:44 | Day surgery (SDC) | payer OTHER ==
[2022-02-01 06:23] VITALS: BMI 25.7
[2022-02-01] MEDS ORDERED: PROPOFOL 40 ML ONE (06:54)
[2022-02-01] MEDS ORDERED: SODIUM CHLORIDE 0.9% P/F 10 ML VIAL IJ ONE (06:58)
[2022-02-01] MEDS ORDERED: ePHEDrine SULFATE 50 MG/1 ML AMPULE ONE (06:58)
[2022-02-01] MEDS ORDERED: LIDOCAINE HCL/PF 2% SDV 5ML VIAL ONE (06:58)
[2022-02-01] MEDS ORDERED: ONDANSETRON 4 MG/2 ML VIAL ONE (06:58)
[2022-02-01] MEDS ORDERED: DEXAMETHASONE SOD PHOSPHATE 4 MG/1 ML VIAL ONE (06:59)
[2022-02-01] MEDS ORDERED: SUCCINYLCHOLINE CHLORIDE 200 MG/10 ML SYRINGE ONE (07:00)
[2022-02-01] MEDS ORDERED: SEVOFLURANE 250 ML BTL ONE (07:04)
[2022-02-01] MEDS ORDERED: MIDAZOLAM HCL 2 MG/2 ML SINGLE DOSE VIAL ONE (07:07)
[2022-02-01] MEDS ORDERED: ONDANSETRON 4 MG/2 ML VIAL IVPUSH PRN (07:32)
[2022-02-01] MEDS ORDERED: ACETAMINOPHEN INJECTION 100 ML IVPB ONE (07:35)
[2022-02-01] MEDS ORDERED: LACTATED RINGERS SOLUTION 1,000 ML IV SCH (07:45)
[2022-02-01] MEDS ORDERED: GENTAMICIN SO4 80 MG/2 ML VIAL ONE (08:13)
[2022-02-01] MEDS ORDERED: VANCOMYCIN 1,000 MG VIAL (RESTRICTED TO ID ONLY) ONE (08:13)
[2022-02-01] MEDS ORDERED: GENTAMICIN 80MG PREMIX BAG IVPB ONE (08:15)
[2022-02-01] MEDS ORDERED: VANCOMYCIN 1 GM in NS (PRE-DOCKED) 1,000 MG/250 ML IVPB ONE (08:16)
[2022-02-01] MEDS ORDERED: KETOROLAC TROMETHAMINE 30 MG/1 ML VIAL ONE (09:38)
[2022-02-01] MEDS ORDERED: BACITRACIN 15 GM TUBE TOPICAL OINTMENT ONE (09:49)
[2022-02-01] MEDS ORDERED: BACITRACIN 15 GM TUBE TOPICAL OINTMENT TP ONE (09:50)
[2022-02-01] MEDS ORDERED: LABETALOL HCL 5 MG/1 ML (100MG/20 ML VIAL) IVPUSH ONE ×2 (10:35→11:33)
[2022-02-01 12:22] VITALS: RESP 18
[2022-02-01 15:22] VITALS: BP 176/90; PULSE 75; TEMP 98.2
== END 2022-02-01 14:30 | disposition home or self-care (01) ==
LOC: JASU-SURG 04:44
PROVIDERS: ATTEND Urology
PROC: 0TSC4ZZ Reposition Bladder Neck, Percutaneous Endoscopic Approach (ICD-10-PCS; principal; 2022-02-01 08:56)
DX: N39.3 Stress incontinence (female) (male) (principal); I10 Essential (primary) hypertension; E11.9 Type 2 diabetes mellitus without complications; Z79.84 Long term (current) use of oral hypoglycemic drugs
CPT/HCPCS: 53440; L8699; 82962; 94760; C1771; C9803-CS; U0003; U0005